=== PATIENT | female | born 1975 | race Caucasian/White ===

== ENCOUNTER 2017-12-09 09:40 | Day surgery (SDC) | payer OTHER ==
[2017-12-08 13:38] VITALS: BMI 37.5
[2017-12-09] MEDS ORDERED: PROPOFOL 20 ML ONE (10:47)
[2017-12-09] MEDS ORDERED: LIDOCAINE HCL/PF 2% SDV 5ML VIAL ONE (10:47)
[2017-12-09] MEDS ORDERED: LIDOCAINE HCL 2% JELLY 10 ML CARTRIDGE TP ONE (11:32)
[2017-12-09] MEDS ORDERED: LIDOCAINE HCL 2% JELLY 10 ML CARTRIDGE ONE (11:33)
[2017-12-09 11:44] VITALS: TEMP 98
[2017-12-09 13:50] VITALS: BP 124/61; PULSE 74
== END 2017-12-09 14:15 | disposition home or self-care (01) ==
LOC: JASU-ENDO 09:40
PROVIDERS: ATTEND Internal Medicine Gastroenterology
PROC: 0W3P8ZZ Control Bleeding in Gastrointestinal Tract, Via Natural or Artificial Opening Endoscopic (ICD-10-PCS; principal; 2017-12-09 10:15)
DX: K62.5 Hemorrhage of anus and rectum (principal); K64.4 Residual hemorrhoidal skin tags; K64.8 Other hemorrhoids
CPT/HCPCS: 84703

== ENCOUNTER 2018-05-09 17:41 | Emergency (ER) | payer OTHER ==
[2018-05-09 17:53] VITALS: BP 121/55; PULSE 80; TEMP 98.4; BMI 37.0
[2018-05-09] MEDS ORDERED: IBUPROFEN 400 MG TABLET (FP) PO ONE ×2 (18:17→18:23)
--- NOTE | 2018-05-09 18:32 | PDOC ---
History of Present Illness - General Chief Complaint: Eye Problem Stated Complaint: EYE PAIN Time Seen by Provider: 05/09/18 18:02 History Source: Patient - History of Present Illness Timing/Duration: other Past History - Past Medical History Allergies/Adverse Reactions: Allergies Allergy/AdvReac Type Severity Reaction Status Date / Time Penicillins Allergy Rash Verified 05/09/18 17:43 Home Medications: Ambulatory Orders Bacitracin Ophthalmic Oint - 1 applic TP ASDIR #1 tube 05/09/18 Anemia: Yes Asthma: No Cancer: No Cardiac Disorders: Yes ([place]) CVA: No COPD: No CHF: No Dementia: No Diabetes: No GI Disorders: No Disorders: No HTN: No Hypercholesterolemia: No Kidney Stones: Yes Liver Disease: No Seizures: No Thyroid Disease: No - Surgical History Abdominal Surgery: No Appendectomy: No Cardiac Surgery: No Cholecystectomy: Yes Lung Surgery: No Neurologic Surgery: No Orthopedic Surgery: No - Immunization History Immunization Up to Date: Yes - Suicide/Smoking/Psychosocial Hx Smoking Status: No Smoking History: Never smoked Have you smoked in the past 12 months: No Number of Cigarettes Smoked Daily: 0 Hx Alcohol Use: No Drug/Substance Use Hx: No Substance Use Type: None Hx Substance Use Treatment: No Review of Systems - Review of Systems HEENTM: Yes: Eye Pain. No: Blurred Vision *Physical Exam - Vital Signs Last Vital Signs Temp Pulse Resp BP Pulse Ox 98.4 F 80 18 121/55 L 98 05/09/18 17:43 05/09/18 17:43 05/09/18 17:43 05/09/18 17:43 05/09/18 17:43 - Physical Exam General Appearance: Yes: Appropriately Dressed. No: Apparent Distress HEENT: positive: Normal Voice, Other (minimal swelling to inner upper lid of R eye w/ corresponding ~1-2mm pustule on underside of upper lid, no fb and no surrounding erythema ) Neck: positive: Supple Respiratory/Chest: negative: Respiratory Distress Integumentary: positive: Dry, Warm Neurologic: positive: Fully Oriented, Alert, Normal Mood/Affect Moderate Sedation - Procedure Monitoring Vital Signs: Procedure Monitoring Vital Signs Temperature 98.4 F 05/09/18 17:43 Pulse Rate 80 05/09/18 17:43 Respiratory Rate 18 05/09/18 17:43 Blood Pressure 121/55 L 05/09/18 17:43 O2 Sat by Pulse Oximetry (%) 98 05/09/18 17:43 Medical Decision Making - Medical Decision Making 05/09/18 18:28 43-year-old female, denies any past medical history, presents with R eyelid pain and swelling. 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 Denies any foreign body sensation at this time and no tearing, discharge, photophobia or visual changes. Denies chemicals in eye. Does not wear contact lens see exam Hordeolum, appears internal No e/o cellulitis at this time No gross fb on lid eversion No uptake on gordillo lamp -dc w/ warm compresses, bacitracin -Reasons to return d/w pt *DC/Admit/Observation/Transfer Diagnosis at time of Disposition: Hordeolum Qualifiers: Hordeolum type: internum Laterality: right Eyelid: upper Qualified Code(s): H00.021 - Hordeolum internum right upper eyelid - Discharge Dispostion Disposition: HOME Condition at time of disposition: Good - Prescriptions Prescriptions: Bacitracin Ophthalmic Oint - 1 applic TP ASDIR #1 tube - Referrals - Patient Instructions Printed Discharge Instructions: DI for Hordeolum Additional Instructions: Tiene vikram inflamacin de stafford prpado, que puede causar dolor e hinchazn. Aplique compresas tibias 4 veces al da latesha 15 minutos cada vez, bushra se explica en la rai de emergencias. [place] un trapo hmedo y colquelo en el microondas latesha 30 segundos y luego aplquelo en el humble derecho hasta que alcance la temperatura ambiente. Repite esto 4 veces al da. Por favor aplique bacitracin al sitio bushra se indica. Si los sntomas empeoran, regrese a la rai de emergencias - Post Discharge Activity Forms/Work/School Notes: Back to Work
== END 2018-05-09 18:31 | disposition home or self-care (01) ==
LOC: JERFT 17:41
DX: H00.021 Hordeolum internum right upper eyelid (principal)
CPT/HCPCS: 99281-25

== ENCOUNTER 2021-07-22 16:33 | Emergency (ER) | payer OTHER ==
[2021-07-22 16:43] VITALS: BP 117/77; PULSE 94; TEMP 97.7; BMI 39.0
[2021-07-22] MEDS ORDERED: ONDANSETRON *ODT* 4 MG TABLET SL ONE (17:57)
[2021-07-22] MEDS ORDERED: ONDANSETRON *ODT* 4 MG TABLET ONE (18:48)
[2021-07-23 14:08] LABS: SARS-CoV-2 NAA Not Detected (Not Detected)
== END 2021-07-22 20:20 | disposition home or self-care (01) ==
LOC: JERFT 16:33 → JER 16:33 → JERFT 20:20
DX: R11.11 Vomiting without nausea (principal)
CPT/HCPCS: 99283-25; C9803; Q0162; U0003; U0005

== ENCOUNTER 2021-08-26 01:38 | Emergency (ER) | payer OTHER ==
[2021-08-26 01:54] VITALS: BP 117/76; PULSE 63; TEMP 98; BMI 36.8
[2021-08-26] MEDS ORDERED: ACETAMINOPHEN 500 MG TABLET (FP) PO ONE (03:19)
[2021-08-26] MEDS ORDERED: LIDOCAINE 5% TOPICAL PATCH TP ONE (03:19)
[2021-08-26] MEDS ORDERED: LIDOCAINE 5% TOPICAL PATCH ONE (03:55)
[2021-08-26] MEDS ORDERED: ACETAMINOPHEN 325 MG TABLET (FP) ONE (03:55)
[2021-08-26] MEDS ORDERED: METHOCARBAMOL 500 MG TABLET PO ONE (04:07)
[2021-08-26] MEDS ORDERED: LIDOCAINE PATCH REMOVAL MC SCH (22:00)
== END 2021-08-26 04:13 | disposition home or self-care (01) ==
LOC: JER 01:38
DX: M54.2 Cervicalgia (principal); L40.4 Guttate psoriasis
CPT/HCPCS: 99283-25

== ENCOUNTER 2024-01-05 12:26 | Emergency (ER) | payer SELFPAY ==
[2024-01-05 12:48] VITALS: BP 166/99; PULSE 64; RESP 20; TEMP 98.6; BMI 35.1
[2024-01-05] MEDS: ACETAMINOPHEN 500 MG TABLET (FP) PO ONE (13:51)
[2024-01-05] MEDS ORDERED: ACETAMINOPHEN 325 MG TABLET (FP) ONE (13:51)
== END 2024-01-05 15:24 | disposition home or self-care (01) ==
LOC: JER 12:26
DX: R07.89 Other chest pain (principal); R00.2 Palpitations
CPT/HCPCS: 93005; 93010; 99283-25